=== PATIENT | male | born 1940 | race Caucasian/White ===

== ENCOUNTER 2017-09-05 08:49 | Day surgery (SDC) | payer MEDICARE, OTHER ==
[~2017-09-05] VITALS: Ht 172.7 cm; Wt 104.5 kg
[2017-09-05 09:15] VITALS: BP 130/82
[2017-09-05] MEDS ORDERED: RIVA20TA PO (09:29)
[2017-09-05] MEDS ORDERED: DIPH50CA62 PO (09:29)
[2017-09-05] MEDS ORDERED: VIT1TABL32 PO (09:29)
[2017-09-05] MEDS ORDERED: DILT60TA27 PO (09:29)
[2017-09-05] MEDS ORDERED: RABE20TA26 PO (09:29)
[2017-09-05] MEDS ORDERED: SIMV20TA3 PO (09:29)
[2017-09-05] MEDS ORDERED: MULT-6 PO (09:29)
[2017-09-05 10:00] LABS: BASOPHILS # (AUTO) 0.04 x10^3/uL (0-0.1); BASOPHILS % (AUTO) 1 % (0-1); EOSINOPHILS # (AUTO) 0.09 x10^3/uL (0-0.4); EOSINOPHILS % (AUTO) 1 % (1-7); LYMPHOCYTES # (AUTO) 2.26 x10^3/uL (1-3.4); LYMPHOCYTES % (AUTO) 33 % (22-44); MD NO; MEAN CORPUSCULAR HEMOGLOBIN 31.8 pg (27.5-34.5); MEAN CORPUSCULAR HGB CONC 34.1 g/dL (33.2-36.2); MEAN CORPUSCULAR VOLUME 93.1 fL (81-97); MONOCYTES # (AUTO) 0.58 x10^3/uL (0.2-0.8); MONOCYTES % (AUTO) 8 % (2-9); NEUTROPHILS # (AUTO) 3.98 x10^3/uL (1.8-6.8); NEUTROPHILS % (AUTO) 57 % (42-75); PLATELET COUNT 202 x10^3/uL (130-400); RED BLOOD COUNT 4.81 x10^6/uL (4.38-5.82); RED CELL DISTRIBUTION WIDTH 13.3 % (9.4-14.8)
[2017-09-05 10:11] LABS: ALANINE AMINOTRANSFERASE 53 U/L (12-78); ALBUMIN 4.1 g/dL (3.4-5.0); ANION GAP 4 mmol/L (5-15); CALCIUM 9.1 mg/dL (8.5-10.1); CHLORIDE 109 mmol/L (98-107); CREATININE 1.17 mg/dL (0.7-1.3)
[2017-09-05 10:13] LABS: ALKALINE PHOSPHATASE 69 U/L (45-117); TOTAL PROTEIN 7.7 g/dL (6.4-8.2)
[2017-09-05] MEDS ORDERED: PROPOFOL 10 MG/ML, 20ML ONE (11:28)
== END 2017-09-05 12:25 | disposition home or self-care (01) ==
LOC: CACL 08:49
PROVIDERS: ATTEND Internal Medicine Cardiovascular Disease
DX: I48.91 Unspecified atrial fibrillation (principal); Z79.82 Long term (current) use of aspirin; Z72.89 Other problems related to lifestyle
CPT/HCPCS: 36415; 80053; 85025; 92960; J2704

== ENCOUNTER → 2017-09-15 | Outpatient (CLI) | payer MEDICARE, OTHER ==
[~2017-09-15] MED LIST: DILT60TA27 PO; DIPH50CA62 PO; MULT-6 PO; RABE20TA26 PO; REGADENOSON 0.4 MG/5 ML SYRINGE ONE; RIVA20TA PO; SIMV20TA3 PO; VIT1TABL32 PO
== END | disposition home or self-care (01) ==
LOC: CVU 07:29
PROVIDERS: ATTEND Internal Medicine Cardiovascular Disease
DX: Z01.810 Encounter for preprocedural cardiovascular examination (principal); I48.91 Unspecified atrial fibrillation
CPT/HCPCS: 78452; 93017; 93306; A9502; J2785

== ENCOUNTER 2017-09-26 07:50 | Day surgery (SDC) | payer MEDICARE, OTHER ==
[~2017-09-26] VITALS: Ht 172.7 cm; Wt 104.5 kg
[~2017-09-26 07:50] MED LIST changes: -REGADENOSON 0.4 MG/5 ML SYRINGE ONE
[2017-09-26 08:17] VITALS: BP 141/93
[2017-09-26] MEDS ORDERED: FLEC100T PO (08:27)
[2017-09-26 09:20] LABS: ANION GAP 5 mmol/L (5-15); CHLORIDE 107 mmol/L (98-107); CREATININE 1.09 mg/dL (0.7-1.3)
== END 2017-09-26 11:30 | disposition home or self-care (01) ==
LOC: CACL 07:50
PROVIDERS: ATTEND Internal Medicine Cardiovascular Disease
DX: I48.91 Unspecified atrial fibrillation (principal); K21.9 Gastro-esophageal reflux disease without esophagitis; E78.2 Mixed hyperlipidemia
CPT/HCPCS: 36415; 80048; 92960